=== PATIENT | female | born 1995 | race Hispanic/Latino ===

== ENCOUNTER 2019-10-22 11:00 | Outpatient (AMBR) | payer MEDICAID, SELFPAY ==
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
--- NOTE | 2019-10-13 13:27 | PT.ODAYNRPT ---
PT Outpatient Daily Note Date of Service: October 13, 2019 OP Daily Note Visit Reasons: ankle and knee pain Outpatient Physical Therapy Treatment Date: 10/13/19 Subjective: Pt's afraid to stand and has not walk yet. Objective: Please see flow chart for list of ther ex performed Assessment: tolerate exercises with minimal pain; difficulty with WB due to L LE pain in standing. unable to attempt gait due to Pt's fear of falling. Pt performed all exercises in the PB Plan: Continue with PT Length of Time (minutes) of Treatment: 30 Minutes Office Procedures PT Procedures PT Date of Service: 10/10/19 OP PT Eval Mod Complex 30 minutes: Yes PT Procedures PT Date of Service: 10/13/19 MCL Initial 30 minutes: Yes
--- NOTE | 2019-10-16 11:19 | PT.ODAYNRPT ---
PT Outpatient Daily Note Date of Service: October 16, 2019 OP Daily Note Visit Reasons: ankle and knee pain Outpatient Physical Therapy Treatment Date: 10/16/19 Subjective: pt states she is able to bear a little more weight although she has not took a full step forward for ambulation. Objective: see flow sheet. Assessment: observed difficulty of the ankle motion during it's isolation exercises. placed my hand on her L knee to prevent compensation of the hip. she then noticed the difference and is aware of only moving the ankle. she did a improve a little but needs more strengthening of the ankle. she is able to stand pivot transfer on her own from WC to chair with SBA. Plan: continue POC per PT. Length of Time (minutes) of Treatment: 30 Minutes Office Procedures PT Procedures PT Date of Service: 10/10/19 OP PT Eval Mod Complex 30 minutes: Yes PT Procedures PT Date of Service: 10/13/19 MCL Initial 30 minutes: Yes PT Procedures PT Date of Service: 10/16/19 MCL Initial 30 minutes: Yes
--- NOTE | 2019-10-20 16:05 | PT.ODAYNRPT ---
PT Outpatient Daily Note Date of Service: October 20, 2019 OP Daily Note Visit Reasons: ankle and knee pain Outpatient Physical Therapy Treatment Date: 10/20/19 Subjective: Pt able to put more weight on her leg. Pt still fearful of walking. Objective: Please see flow chart for list of ther ex performed Assessment: tolerate exercises with minimal pain; able to weight more to post-op limb with less guarding. Pt advised she was ready to take baby step but refused due to fear. Pt instructed that next PT session we will attempt gait training. Pt gave verbal consent. Plan: Continue with PT Length of Time (minutes) of Treatment: 45 Minutes Office Procedures PT Procedures PT Date of Service: 10/10/19 OP PT Eval Mod Complex 30 minutes: Yes PT Procedures PT Date of Service: 10/13/19 MCL Initial 30 minutes: Yes PT Procedures PT Date of Service: 10/16/19 MCL Initial 30 minutes: Yes PT Procedures PT Date of Service: 10/20/19 MCL Initial 30 minutes: Yes MCL Additional 15 minutes (Total 45 Minutes): Yes
--- NOTE | 2019-10-22 13:40 | PT.ODAYNRPT ---
PT Outpatient Daily Note Date of Service: October 22, 2019 OP Daily Note Visit Reasons: ankle and knee pain Outpatient Physical Therapy Treatment Date: 10/22/19 Subjective: Pt standing longer. Pt ready to attempt a little walking today. Objective: Please see flow chart for list of ther ex performed Assessment: step to pattern in PB. Pt still fearful of WB but able to with use of hands Plan: Continue with PT Length of Time (minutes) of Treatment: 45 Minutes Office Procedures PT Procedures PT Date of Service: 10/10/19 OP PT Eval Mod Complex 30 minutes: Yes PT Procedures PT Date of Service: 10/13/19 MCL Initial 30 minutes: Yes PT Procedures PT Date of Service: 10/16/19 MCL Initial 30 minutes: Yes PT Procedures PT Date of Service: 10/20/19 MCL Initial 30 minutes: Yes MCL Additional 15 minutes (Total 45 Minutes): Yes PT Procedures PT Date of Service: 10/22/19 MCL Initial 30 minutes: Yes MCL Additional 15 minutes (Total 45 Minutes): Yes
== END 2019-10-23 23:59 | disposition home or self-care (01) ==
PROVIDERS: PCP Family Medicine; Referring Provider Family Medicine; Visit Provider Orthopaedic Surgery
DX: S82.222D Displaced transverse fracture of shaft of left tibia, subsequent encounter for closed fracture with routine healing (principal); M25.562 Pain in left knee; R26.2 Difficulty in walking, not elsewhere classified; V89.2XXD Person injured in unspecified motor-vehicle accident, traffic, subsequent encounter
CPT/HCPCS: 97162